=== PATIENT | female | born 1995 | race Asian ===

== ENCOUNTER 2019-01-31 23:01 | Observation (INO) | payer OTHER ==
[2019-01-31] MEDS ORDERED: KETOROLAC 15 MG/1 ML SDV IVP ONE (23:17)
--- NOTE | 2019-01-31 23:18 | EDPHY ---
H & P Stated Complaint: L ARM PAIN Time Seen by Provider: 01/31/19 23:09 HPI/ROS: CHIEF COMPLAINT: Left arm and left elbow pain, atraumatic HISTORY OF PRESENT ILLNESS: 23-year-old female generally healthy, no history of IV drug abuse, no history of VTE, flew in from [place] this evening. Patient flew from [facility] to [place] on the 15 of January and flew from [place] to [place] today. On the flight today she noted pain to her left elbow between the [place] and [place] flight and came to the ER from the airport for evaluation. No prior history of similar. No dyspnea. No trauma or fall. No weakness. PRIMARY CARE PROVIDER: REVIEW OF SYSTEMS: 10 systems reviewed and negative with the exception of the elements mentioned in the history of present illness PAST MEDICAL & SURGICAL HISTORY: no VTE history. No STD history. No IV drug abuse history. SOCIAL HISTORY: Visiting from [facility] PHYSICAL EXAM (Prior to examination, patient consented to physical exam, hands were washed and my usual and customary physical exam procedures followed) 1) GENERAL: Well-developed, well-nourished, alert and oriented. Appears uncomfortable, crying. 2) HEAD: Normocephalic, atraumatic 3) HEENT: Pupils equal, round, reactive to light bilaterally. Sclera anicteric. 4) NECK: Full range of motion, no meningeal signs. 5) LUNGS: Clear auscultation bilaterally, no wheezes, no rhonchi, no retractions. 6) HEART: Regular rate and rhythm, no murmur, no heave, no gallop. 7) ABDOMEN: No guarding, no rebound, no focal tenderness, 8) MUSCULOSKELETAL: Left upper extremity: Normal coloration, no asymmetry, no edema. Exquisitely tender to palpation to the left elbow joint. Keeping elbow flexed at 90 degrees, unwilling or unable to flex or extend beyond this. Proximally distally nontender. Soft compartments. Brisk pulses distally. Normal coloration normal temperature distally. Capillary refill less than 2 sec. 9) BACK: No CVA tenderness, no midline vertebral tenderness, no fluctuance, no step-off, no obvious trauma, no visual or palpable abnormality. 10) SKIN: No rash, no petechiae. 11) Psychiatric: Patient is oriented X 3, there is no agitation. DIFFERENTIAL DIAGNOSIS: In no particular order including but not limited to neuropathy, septic arthritis, upper extremity DVT, compartment syndrome - Personal History LMP (Females 10-55): 1-7 Days Ago Current Tetanus Diphtheria and Acellular Pertussis (TDAP): Yes - Medical/Surgical History Hx Asthma: No Hx Chronic Respiratory Disease: No Hx Diabetes: No Hx Cardiac Disease: No Hx Renal Disease: No Hx Cirrhosis: No Hx Alcoholism: No Hx HIV/AIDS: No Hx Splenectomy or Spleen Trauma: No Other PMH: TONSILLECTOMY - Social History Smoking Status: Never smoked Constitutional: Initial Vital Signs Temperature (C) 36.9 C 01/31/19 23:06 Heart Rate 74 01/31/19 23:06 Respiratory Rate 16 01/31/19 23:06 Blood Pressure 107/89 H 01/31/19 23:06 O2 Sat (%) 98 01/31/19 23:06 O2 Delivery Mode Room Air Allergies/Adverse Reactions: No Known Allergies Allergy (Unverified 01/31/19 23:06) Home Medications: Medication Instructions Recorded NK [No Known Home Meds] 01/31/19 Medical Decision Making ED Course/Re-evaluation: 11:15 p.m.: Patient complaining of left elbow pain plan left upper extremity pain after a flight from [place]. She is exquisitely tender to palpation left elbow, is unable to extend or flex beyond 90 degrees. We discussed possible etiologies including, but not limited to, septic arthritis left elbow, upper extremity DVT. Recommended laboratory studies and diagnostic studies including x-ray, ultrasound. 11:40 p.m.: Informed that the patient is declining all studies at this time would like to check with her insurance company 1st. 12:13 a.m.: Patient has been in consultation with her insurer in [place] and she agrees to move forward with diagnostic studies. 1:30 a.m.: Patient has been re-evaluated with serial exams. X-ray interpreted by herself in the emergency department shows no definitive fracture, no posterior fat pad. Ultrasound is negative. Patient was examined by myself and Dr. Jose Raul Dsouza with repeat exams in the ER. Patient declines further analgesia beyond Toradol. Have had multiple discussions with the patient inquired about possible obvious or micro trauma including whether the patient spent time leaning on her armrests however she denies this noting that she was seated in the middle seat of the plane and other individuals were using the arm rests. She denies falling on the area, denies leaning on the elbow for prolonged periods. - Data Points Laboratory Results: Laboratory Results 02/01/19 00:15 02/01/19 00:15 02/01/19 02/01/19 02/01/19 00:15 00:15 00:15 WBC 9.60 10^3/uL H 10^3/uL (3.80-9.50) RBC 4.33 10^6/uL 10^6/uL (4.18-5.33) Hgb 12.1 g/dL L g/dL (12.6-16.3) Hct 37.6 % L % (38.0-47.0) MCV 86.8 fL fL (81.5-99.8) MCH 27.9 pg pg (27.9-34.1) MCHC 32.2 g/dL L g/dL (32.4-36.7) RDW 14.4 % % (11.5-15.2) Plt Count 282 10^3/uL 10^3/uL (150-400) MPV 9.1 fL fL (8.7-11.7) Neut % (Auto) 79.5 % H % (39.3-74.2) Lymph % (Auto) 12.7 % L % (15.0-45.0) [place] % (Auto) 6.8 % % (4.5-13.0) Eos % (Auto) 0.4 % L % (0.6-7.6) Baso % (Auto) 0.4 % % (0.3-1.7) Nucleat RBC Rel Count 0.0 % % (0.0-0.2) Absolute Neuts (auto) 7.63 10^3/uL H 10^3/uL (1.70-6.50) Absolute Lymphs (auto) 1.22 10^3/uL 10^3/uL (1.00-3.00) Absolute Monos (auto) 0.65 10^3/uL 10^3/uL (0.30-0.80) Absolute Eos (auto) 0.04 10^3/uL 10^3/uL (0.03-0.40) Absolute Basos (auto) 0.04 10^3/uL 10^3/uL (0.02-0.10) Absolute Nucleated RBC 0.00 10^3/uL 10^3/uL (0-0.01) Immature Gran % 0.2 % % (0.0-1.1) Immature Gran # 0.02 10^3/uL 10^3/uL (0.00-0.10) ESR 14 MM/HR MM/HR (0-20) Sodium 139 mEq/L mEq/L (135-145) Potassium 3.4 mEq/L L mEq/L (3.5-5.2) Chloride 104 mEq/L mEq/L (97-110) Carbon Dioxide 25 mEq/l mEq/l (22-31) Anion Gap 10 mEq/L mEq/L (6-14) BUN 15 mg/dL mg/dL (7-23) Creatinine 0.6 mg/dL mg/dL (0.6-1.0) Estimated GFR > 60 Glucose 111 mg/dL H mg/dL (70-100) Calcium 9.4 mg/dL mg/dL (8.5-10.4) C-Reactive Protein < 5.0 mg/L mg/L (<10.0) Beta HCG, Qual NEGATIVE Medications Given: Discontinued Medications Ketorolac Tromethamine (Toradol) 15 mg IVP EDNOW ONE Stop: 01/31/19 23:18 Last Admin: 02/01/19 00:14 Dose: 15 mg Lorazepam (Ativan Injection) 0.5 mg IVP EDNOW ONE Stop: 02/01/19 00:29 Last Admin: 02/01/19 00:38 Dose: 0.5 mg Departure - Departure
[2019-02-01 00:27] LABS: PLATELET COUNT 282 10^3/uL (150-400)
[2019-02-01] MEDS ORDERED: LORazepam 2 MG/ML INJ IVP ONE (00:28)
[2019-02-01] MEDS ORDERED: ONDANSETRON DISINTEGRATING 4 MG TAB PO PRN (02:40)
[2019-02-01] MEDS ORDERED: ACETAMINOPHEN 325 MG TAB PO PRN (02:40)
[2019-02-01] MEDS ORDERED: ONDANSETRON 4 MG/2 ML VIAL IVP PRN (02:40)
[2019-02-01] MEDS ORDERED: oxyCODONE IR 5 MG TAB PO PRN (02:42)
--- NOTE | 2019-02-01 02:46 | PDGENHP ---
History and Physical - Chief Complaint L elbow pain - History of Present Illness 23 yo F w/ no PMHx presents with L elbow pain. The patient noted L elbow pain starting today after a flight from [place]. She flew from [facility] to [place] on . She has pain mostly overlying the posterior aspect of her L elbow. There is no redness visible, she denies fever/chills. She has a lot of discomfort with range of motion, although I am able to elicit full range from her. She has no prior hx of DVT or joint issues. She denies any recent rash or other joint pain/ swelling. an US was negative for DVT and XR unremarkable. She is being admitted for observation and orthopedic consultation. Case discussed with ED PETER Cook; records reviewed and summarized above. History Information - Allergies/Home Medication List Allergies/Adverse Reactions: No Known Allergies Allergy (Unverified 01/31/19 23:06) Home Medications: NK [No Known Home Meds] 01/31/19 [Last Taken Unknown] I have personally reviewed and updated: family history, medical history - Past Medical History no pertinent PMH - Surgical History Additional surgical history: Tonsillectomy - Family History Positive for: diabetes type II - Social History Smoking Status: Never smoked Review of Systems Review of Systems: ROS: 10pt was reviewed & negative except for what was stated in HPI & below Physical Exam Physical Exam: Temp Pulse Resp BP Pulse Ox 36.9 C 83 18 118/65 96 01/31/19 23:06 02/01/19 01:54 02/01/19 01:54 02/01/19 01:54 02/01/19 01:54 Constitutional: appears nourished, uncomfortable Eyes: PERRL, EOMI Ears, Nose, Mouth, Throat: moist mucous membranes, no oral mucosal ulcers Cardiovascular: regular rate and rhythym, no murmur, rub, or gallop Respiratory: no respiratory distress, clear to auscultation Gastrointestinal: normoactive bowel sounds, soft, non-tender abdomen Skin: warm, normal color Musculoskeletal: full muscle strength, joint tenderness (L elbow), pain with ROM (L elbow) Neurologic: AAOx3, CN II-XII Intact Psychiatric: interacting appropriately, not anxious Lab Data & Imaging Review 02/01/19 00:15 02/01/19 00:15 WBC 9.60 10^3/uL (3.80-9.50) H 02/01/19 00:15 RBC 4.33 10^6/uL (4.18-5.33) 02/01/19 00:15 Hgb 12.1 g/dL (12.6-16.3) L 02/01/19 00:15 Hct 37.6 % (38.0-47.0) L 02/01/19 00:15 MCV 86.8 fL (81.5-99.8) 02/01/19 00:15 MCH 27.9 pg (27.9-34.1) 02/01/19 00:15 MCHC 32.2 g/dL (32.4-36.7) L 02/01/19 00:15 RDW 14.4 % (11.5-15.2) 02/01/19 00:15 Plt Count 282 10^3/uL (150-400) 02/01/19 00:15 MPV 9.1 fL (8.7-11.7) 02/01/19 00:15 Neut % (Auto) 79.5 % (39.3-74.2) H 02/01/19 00:15 Lymph % (Auto) 12.7 % (15.0-45.0) L 02/01/19 00:15 [place] % (Auto) 6.8 % (4.5-13.0) 02/01/19 00:15 Eos % (Auto) 0.4 % (0.6-7.6) L 02/01/19 00:15 Baso % (Auto) 0.4 % (0.3-1.7) 02/01/19 00:15 Nucleat RBC Rel Count 0.0 % (0.0-0.2) 02/01/19 00:15 Absolute Neuts (auto) 7.63 10^3/uL (1.70-6.50) H 02/01/19 00:15 Absolute Lymphs (auto) 1.22 10^3/uL (1.00-3.00) 02/01/19 00:15 Absolute Monos (auto) 0.65 10^3/uL (0.30-0.80) 02/01/19 00:15 Absolute Eos (auto) 0.04 10^3/uL (0.03-0.40) 02/01/19 00:15 Absolute Basos (auto) 0.04 10^3/uL (0.02-0.10) 02/01/19 00:15 Absolute Nucleated RBC 0.00 10^3/uL (0-0.01) 02/01/19 00:15 Immature Gran % 0.2 % (0.0-1.1) 02/01/19 00:15 Immature Gran # 0.02 10^3/uL (0.00-0.10) 02/01/19 00:15 ESR 14 MM/HR (0-20) 02/01/19 00:15 Sodium 139 mEq/L (135-145) 02/01/19 00:15 Potassium 3.4 mEq/L (3.5-5.2) L 02/01/19 00:15 Chloride 104 mEq/L (97-110) 02/01/19 00:15 Carbon Dioxide 25 mEq/l (22-31) 02/01/19 00:15 Anion Gap 10 mEq/L (6-14) 02/01/19 00:15 BUN 15 mg/dL (7-23) 02/01/19 00:15 Creatinine 0.6 mg/dL (0.6-1.0) 02/01/19 00:15 Estimated GFR > 60 02/01/19 00:15 Glucose 111 mg/dL (70-100) H 02/01/19 00:15 Calcium 9.4 mg/dL (8.5-10.4) 02/01/19 00:15 C-Reactive Protein < 5.0 mg/L (<10.0) 02/01/19 00:15 Beta HCG, Qual NEGATIVE 02/01/19 00:15 Assessment & Plan Assessment: 23 yo F w/ no PMHx presents with L elbow pain. Plan: 1. L elbow pain - Unclear etiology; US negative for DVT and XR unremarkable on my review. She continues to have significant pain w/ ROM. She denies injury or trauma. Differential diagnosis includes infectious arthritis, tendonitis, and less likely rheumatologic disorder. - Admit for observation - Await final XR read from radiology - Pain control - Orthopedic surgery consult in the morning Diet - Regular Code - Full Ppx - Low risk, ambulate TID Dispo - Admit under observation status
[2019-02-01] MEDS ORDERED: KETOROLAC 15 MG/1 ML SDV IVP PRN (06:00)
[2019-02-01 06:25] LABS: PLATELET COUNT 256 10^3/uL (150-400)
--- NOTE | 2019-02-01 08:54 | HOSPPROG ---
Hospitalist Progress Note Assessment/Plan: 23 yo F w/ no PMHx presents with L elbow pain. First encounter, reviewed her care w Dr Shine. *Left elbow pain -tenderness, Dr Shine tried to do an aspiration, but no fluid -Ultrasound negative for DVT -x ray shows some fluid -she is exquisitely tender, but no red flags in regards to labs, sed rate stable , wbc stable -Dr Shine and I spoke w her about worsening pain, fevers, chills to return to the ER, she may need an MRI to r/o an infection *plan: asked OT to see a place her in a sling, trial of one higher dose of ibuprofen. Dc if pain is managed. She is very worried about [place] from [place], the [place] associated. She assures me she will f/u and return to the ER if anything worsens. Subjective: Tiki is tearful w extending her left arm, no bicep or tricep pain. Objective: Vital Signs Temp Pulse Resp BP Pulse Ox 37.5 C 78 16 102/63 96 02/01/19 07:37 02/01/19 07:37 02/01/19 07:37 02/01/19 07:37 02/01/19 07:37 Laboratory Results 02/01/19 06:16 02/01/19 06:16 01/31/19 02/01/19 02/02/19 05:59 05:59 05:59 Intake Total 20 Balance 20 - Physical Exam Constitutional: uncomfortable, No not in pain (left elbow) Eyes: PERRL Ears, Nose, Mouth, Throat: hearing normal Respiratory: no rales or rhonchi Skin: warm Musculoskeletal: other (pain w extension and flexion of left arm, no palpable swelling, no redness. has some pain in the forearm area) Neurologic: AAOx3 Psychiatric: other (tearful) ICD10 Worksheet Patient Problems: Problems Problem Status Onset Elbow pain, left Acute - ICD10 Problem Qualifiers (1) Elbow pain, left
[2019-02-01] MEDS ORDERED: LIDOCAINE 1% 300 MG/30 ML SDV IF ONE (09:30)
[2019-02-01] MEDS ORDERED: IBUPROFEN 200 MG TAB PO PRN (10:45)
[2019-02-01] MEDS ORDERED: IBUPROFEN 600 MG TAB PO ONE (10:45)
[2019-02-01 11:13] VITALS: BP 109/72
--- NOTE | 2019-02-01 11:18 | ASMTCMCOM ---
CM Note CM Note Notes: Pts case discussed w/ Monique Coronado NP. Pt is a 23 y/o female admitted for left elbow pain. Pt is being discharged today without any needs. CM available for changes. Plan: Independent Date Signed: 02/01/2019 11:17 AM Electronically Signed By:JANE Rivers
--- NOTE | 2019-02-01 13:19 | GCON ---
[f rep st] CONSULTATION INPATIENT CONSULTATION CHIEF COMPLAINT: Left elbow pain. HISTORY OF PRESENT ILLNESS: The patient is a 23-year-old, right-hand dominant, young woman, who live s in [place]. She was flying in from [place] for vacation here in [place]. Last evening upon the f light, she noticed the onset of pain to her left elbow. This progressively worsened such that when s he landed, she presented to the emergency department for further evaluation. She denied any previous stress or strain to her elbow. Denied any previous trauma. Had no prior infectious source of denta l pain or other infections, and denies any IV drug use. She was admitted secondary to persistent micaela n for observation and orthopedic consultation. PAST MEDICAL HISTORY: Denies. PAST SURGICAL HISTORY: She had a tonsillectomy. MEDICATIONS: None. ALLERGIES: No known drug allergies. SOCIAL HISTORY: She denies any tobacco. Minimal alcohol. REVIEW OF SYSTEMS: Negative for current chest pain, shortness of breath, belly pain, back pain, numb ness, tingling, or other joint related complaints. OBJECTIVE: This is a healthy young woman, in no acute distress. CURRENT VITAL SIGNS: Demonstrate b lood pressure 102/63, heart rate is 78, respiratory rate is 16. She is 96% on room air. Temperature max 37.5. White blood cell count is currently 7, hematocrit is 36.2. GENERAL: This is a healthy y oung woman, who was anxious, no acute distress. EXTREMITIES: Her left upper extremity reveals no ob vious erythema, swelling, ecchymosis. She has a very mild palpable effusion. She has discomfort wit h active and passive pronation, supination, flexion, extension across the dorsolateral and medial asp ect of her elbow. There is no focal tenderness over the common extensor or flexor tendons. There is no bony specific tenderness over the medial or lateral epicondyle or posterior olecranon. She is ab le to actively range her arm with discomfort, and is tearful with range of motion. RADIOGRAPHS: AP, lateral, oblique of her elbow demonstrates no evidence of intraosseous process. Th ere is no effusion present. On x-ray, there is no fracture, step-off, or deformity. There is no loo se body. Ultrasound of her upper extremity to rule out DVT is negative. IMPRESSION: Left elbow pain. TREATMENT PLAN: As her story is suspicious for infection despite being afebrile and a low white coun t, with the spontaneous onset of pain and discomfort with any range of motion, I have recommended asp iration of her elbow joint. This was performed by myself under sterile prep. There was no fluid wit hin her elbow and certainly no purulence. She tolerated this well. I have, therefore, recommended a sling for comfort, ice and elevation, and follow up in 1 week. If this worsens for increasing swell ing, fevers, chills, or other signs of infection, I would recommend followup immediately. Otherwise, she will follow up electively in one-week duration. /[id number]/MODL
--- NOTE | 2019-02-01 15:35 | GDS ---
[f rep st] DISCHARGE SUMMARY DISCHARGE DIAGNOSIS: Left elbow pain. CONSULTATION: Dr. Diego Shine. HISTORY OF PRESENT ILLNESS: Briefly, the patient is a very sweet 23-year-old woman who recently flew in from the [place] area. Prior from this, she flew from [place] to [place] on 01/15. She had pain mainly located over the posterior aspect of her left elbow area. There is no redness. No fevers, chills. She has not been sick. She had an ultrasound that showed no DVT and x- ray was overall unremarkable. She was seen and evaluated by Dr. Shine who tried to do an aspiration. He was unable to get any fluid. She continues to have some pain. It may be over use causing tendinitis. She was pulling a 40- pound piece of luggage. She is having difficulty with extending and flexing her left arm. I reviewed with her my concerns of possible infectious etiology. Her labs are assuring with a normal white blood cell count today, as well as a stable sed rate. I spoke to her extensively that if the pain keeps continuing, if she develops any type of fever, chills, worsening pain, to return to the ER. She speaks very good Setswana and understands this. DISCHARGE CONDITION: Stable. Blood pressure is 109/72, heart rate of 94, respiratory rate of 14, O2 sat on room air 97%, temperature is 37.1 Celsius. MEDICATIONS AT DISCHARGE: Please see the EMR. DISCHARGE INSTRUCTIONS: 1. To wear a sling for comfort. 2. To begin range of motion as tolerated. 3. To seek attention if she has increasing fever, chills, swelling, pain, or any type of focal complaint. 4. Follow up with Dr. Shine. 5. Her blood cultures are pending. /[id number]/MODL MTDD
== END 2019-02-01 14:07 | disposition home or self-care (01) ==
LOC: F3N 02-01 07:07
PROVIDERS: ADMIT Student in an Organized Health Care Education/Training Program; ATTEND Internal Medicine
PROC: 0R9M3ZZ Drainage of Left Elbow Joint, Percutaneous Approach (ICD-10-PCS; principal; 2019-02-01)
DX: M25.522 Pain in left elbow (principal)
CPT/HCPCS: 20605; 73080; 93971; 96374; 96375; 99285; G0378; J1885; J2060

== ENCOUNTER 2019-02-10 19:09 | Emergency (ER) | payer OTHER ==
[2019-02-10] MEDS ORDERED: KETOROLAC 15 MG/1 ML SDV IVP ONE (19:35)
[2019-02-10] MEDS ORDERED: NS 1,000 ML IV ONE (19:35)
[2019-02-10] MEDS ORDERED: LORazepam 2 MG/ML INJ IVP ONE (19:35)
--- NOTE | 2019-02-10 19:35 | EDPHY ---
H & P Stated Complaint: Head pain, neck pain X 3 days Time Seen by Provider: 02/10/19 19:19 HPI/ROS: CHIEF COMPLAINT: Left-sided neck pain. HISTORY OF PRESENT ILLNESS: 23-year-old female generally healthy, no vasculopathy history, visiting from [facility], was previously seen by myself in the emergency department approximately you 10 days ago and admitted to the hospital for atraumatic left elbow pain, evaluated by orthopedic surgery, negative synovial fluid, symptoms resolved spontaneously discharged home. She returns to the emergency department complaining of 3 days of left sided neck pain without radicular symptoms, without weakness. She is concerned that she may be having a stroke. For pain management she has taken 2 aspirin yesterday. She denies: Headache, visual disturbance, major minor head or neck manipulation or trauma, midline C-spine pain, chest pain, dyspnea, hearing loss , dizziness, facial complaints. REVIEW OF SYSTEMS: 10 systems reviewed and negative with the exception of the elements mentioned in the history of present illness PAST MEDICAL & SURGICAL HISTORY: No pertinent medical or surgical history SOCIAL HISTORY: Student visiting from [facility] in [place] for 5 more weeks. PHYSICAL EXAM (Prior to examination, patient consented to physical exam, hands were washed and my usual and customary physical exam procedures followed) 1) GENERAL: Well-developed, well-nourished, alert and oriented. She appears anxious, she is crying. 2) HEAD: Normocephalic, atraumatic 3) HEENT: Pupils equal, round, reactive to light bilaterally. Sclera anicteric. Nasopharynx, oropharynx, clear, no lesions. MoistDry mucous membranes. Negative Charles's. Symmetrical faces. No facial lesions. No vesicles to face or scalp. No evidence of Ponce's palsy. Ears bilaterally with normal tympanic membranes. 4) NECK: Full range of motion, no meningeal signs. No midline pain. No step- off. Tender to palpation left trapezius and paraspinous cervical region. No skin lesions no vesicles. No carotid bruit. No signs cellulitis or infection. No crepitus. 5) LUNGS: Clear auscultation bilaterally, no wheezes, no rhonchi, no retractions. 6) HEART: Regular rate and rhythm, no murmur, no heave, no gallop. 7) ABDOMEN: No guarding, no rebound, no focal tenderness, negative McBurney's, negative Cedillo's, negative Rovsing's, negative peritoneal sign, 8) MUSCULOSKELETAL: Moving all extremities, no focal areas of tenderness, no obvious trauma. No peripheral edema or discoloration. 9) BACK: No CVA tenderness, no midline vertebral tenderness, no fluctuance, no step-off, no obvious trauma, no visual or palpable abnormality. 10) SKIN: No rash, no petechiae. 11) Psychiatric: Patient is oriented X 3, there is no agitation. 12) CERVICAL SPINE NEURO EXAM: Bilateral reflexes of biceps triceps brachioradialis intact equal bilaterally Motor exam: deltoid, biceps, wrist extension, tricep, finger extension, finger flexion, finger abduction intact equal bilaterally 5/5 13) NEURO: Awake, alert, and oriented to person, place and time. Answers questions appropriately. There were no obvious focal neurologic abnormalities. No cerebellar dysfunction. Cranial nerves 2 through to 12 intact. Normal steady gait. Upper and lower extremities bilaterally with strength 5 / 5, reflexes 2+. DIFFERENTIAL DIAGNOSIS: In no particular order my differential includes but is not limited to deep space infection, cervico-cranial vessel disssection, muscle strain. - Personal History LMP (Females 10-55): 8-14 Days Ago Current Tetanus/Diphtheria Vaccine: Yes Current Tetanus Diphtheria and Acellular Pertussis (TDAP): Yes - Medical/Surgical History Hx Asthma: No Hx Chronic Respiratory Disease: No Hx Diabetes: No Hx Cardiac Disease: No Hx Renal Disease: No Hx Cirrhosis: No Hx Alcoholism: No Hx HIV/AIDS: No Hx Splenectomy or Spleen Trauma: No Other PMH: TONSILLECTOMY - Social History Smoking Status: Never smoked Constitutional: Initial Vital Signs Temperature (C) 36.7 C 02/10/19 19:14 Heart Rate 104 H 02/10/19 19:14 Respiratory Rate 18 02/10/19 19:14 Blood Pressure 143/98 H 02/10/19 19:14 O2 Sat (%) 96 02/10/19 19:14 O2 Delivery Mode Room Air Allergies/Adverse Reactions: No Known Allergies Allergy (Unverified 01/31/19 23:06) Home Medications: Medication Instructions Recorded Acetaminophen [Tylenol 325mg (*)] 650 mg PO Q4HRS PRN tab 02/01/19 Ibuprofen [Motrin (*)] 400 mg PO Q6HRS PRN tab 02/01/19 Cyclobenzaprine [Flexeril 10 MG 10 mg PO TID #7 tab 02/10/19 (RX)] Lidocaine [Lidoderm] 1 each TP BID #30 adh..patch 02/10/19 Medical Decision Making ED Course/Re-evaluation: 7:40 p.m.: Patient is crying when I enter the room. She is concerned that she may be experiencing stroke. On exam she has no neurologic deficits, NIH score of 0. Specifically regarding her upper extremity she has no upper extremity weakness or deficits. She is focally tender to palpation left paraspinous cervical musculature and trapezius muscle. No risk factors for vertebral vessel dissection. Doubt subarachnoid hemorrhage. Doubt meningitis. Doubt CVA. I have recommended IV hydration, IV Toradol and Ativan given her current anxiety state and re-evaluation. 8:55 p.m.: Re-evaluation after IV Toradol, Ativan, hydration. Patient reports feeling "totally better". I re-examined the patient. She remains with a normal neurologic and cervical neuro exam. A lengthy discussion with the patient. Discussed with patient that I think that vertebral vessel dissection is less than likely, doubt CVA, doubt meningitis, doubt cervical spine etiology. I do not think that MRI indicated at this time. Plan will be discharge, supportive care, usual and customary precautions instructions. She feels comfortable being discharged. Care of patient under supervision of secondary supervising physician Dr Valadez . - Data Points Medications Given: Discontinued Medications Sodium Chloride (Ns) 1,000 mls @ 0 mls/hr IV ONCE ONE PRN Reason: Wide Open Stop: 02/10/19 19:36 Last Admin: 02/10/19 19:50 Dose: 1,000 mls Ketorolac Tromethamine (Toradol) 15 mg IVP EDNOW ONE Stop: 02/10/19 19:36 Last Admin: 02/10/19 19:49 Dose: 15 mg Lorazepam (Ativan Injection) 0.5 mg IVP EDNOW ONE Stop: 02/10/19 19:36 Last Admin: 02/10/19 19:49 Dose: 0.5 mg Departure - Departure Disposition: Home, Routine, Self-Care Clinical Impression: Cervical strain, acute Qualifiers: Encounter type: initial encounter Qualified Code(s): S16.1XXA - Strain of muscle, fascia and tendon at neck level, initial encounter Condition: Good Instructions: Cervical Strain (ED) Additional Instructions: Return to the ER immediately if you experience new or worsening neck pain, dizziness, visual disturbance, double vision, lightheadedness, facial droop, or any other symptoms that concern you. Avoid deep tissue massage and chiropractic manipulation, until symptom-free, and cleared by your regular health care provider. Adult Pain & Fever Control: We recommend Acetaminophen (Tylenol) and Ibuprofen (Motrin,Advil) for pain and fever control. When fever is high or pain severe, both drugs can be used at the same time, but at different intervals. Please note the time differences. Your dose is: Acetaminophen 650mg every 4 to 6 hours Ibuprofen 600mg every 6 hours with food OR Note: do not take Acetaminophen with Hydrocodone (Vicodin, Lortab) or Oycodone (Percocet). These medications also contain Acetaminophen. No more than 3000mg of Acetaminophen should be taken in 24 hours (for an adult). Referrals: Hansa Kelly MD [Medical Doctor] - 2-3 days, call for appt. Prescriptions: Cyclobenzaprine [Flexeril 10 MG (RX)] 10 mg PO TID #7 tab Lidocaine [Lidoderm] 1 each TP BID #30 adh..patch
[2019-02-10] MEDS ORDERED: LIDOCAINE 4%/MENTHOL 1% PATCH TD ONE (21:01)
[2019-02-10 23:24] VITALS: BP 123/63
[2019-02-11] MEDS ORDERED: PATCH REMOVAL 1 EA PATCH TD SCH (21:00)
== END 2019-02-10 21:31 | disposition home or self-care (01) ==
DX: M54.2 Cervicalgia (principal); E86.9 Volume depletion, unspecified
CPT/HCPCS: 96374; J1885; J2060